=== PATIENT | female | born 1995 | race Hispanic/Latino ===

== ENCOUNTER 2019-01-11 20:50 | Inpatient (IN) | payer OTHER, SELFPAY ==
[2019-01-12] MEDS ORDERED: MEPERIDINE HCL 25 MG/0.5 ML IV PRN (04:16)
[2019-01-12] MEDS ORDERED: PROMETHAZINE 25 MG/ML VIAL IM PRN (04:16)
[2019-01-12] MEDS ORDERED: CARBOPROST TROME 250 MCG/ML IM PRN (04:16)
[2019-01-12] MEDS ORDERED: Ringers Lactate 1,000 ML IV PRN (04:16)
[2019-01-12] MEDS ORDERED: MIDAZOLAM HCL 2 MG/2 ML INJ IV PRN (04:16)
[2019-01-12] MEDS ORDERED: BUTORPHANOL 1 MG/ML INJ IV PRN (04:16)
[2019-01-12] MEDS ORDERED: METHYLERGONOVINE 0.2MG/ML AMP IM PRN (04:16)
[2019-01-12] MEDS ORDERED: OXYTOCIN/LR 20 UNIT/1,000 ML BAG IV SCH ×2 (05:00→19:00)
[2019-01-12] MEDS ORDERED: Ringers Lactate 1,000 ML IV SCH (05:00)
[2019-01-12 05:14] VITALS: BMI 29.3
[2019-01-12 05:25] LABS: Urine Appearance TURBID; Urine Bilirubin NEGATIVE (NEG); Urine Blood NEGATIVE (NEG); Urine Color YELLOW; Urine Glucose NEGATIVE (NEG); Urine Protein NEGATIVE (NEG); Urine Urobilinogen 0.2 mg/dL (0.2-1.0); Urine pH 5.5 (5.0-7.0)
[2019-01-12 05:26] LABS: Urine Microscopic Reflex ORDER UMIC
[2019-01-12 05:52] LABS: Urine Bacteria 20-50 /HPF (<20); Urine RBC <5 /HPF (NONE SEEN)
[2019-01-12 05:53] LABS: Absolute Lymphocytes (CBC) 1.8 K/uL (0.7-4.9); Basophils % 0.3 % (0-1.3); Hematocrit 38.5 % (36.0-45.0); Lymphocytes % 24.6 % (15.3-44.8); MPV 8.8 fL (7.6-11.3); RBC Red Blood Cell Count 4.18 M/uL (3.86-4.86); Urine Culture Reflex Order REFLEXED
[2019-01-12] MEDS ORDERED: ROPIVACAINE HCL 100 ML IV PRN (11:51)
[2019-01-12] MEDS ORDERED: FENTANYL CITR 100 MCG/2 ML IV ONE (11:51)
[2019-01-12] MEDS ORDERED: ROPIVACAINE HCL 0.2% 20ML AMP IV ONE (11:52)
--- NOTE | 2019-01-12 14:24 | PREOPHP ---
Date of Admission: 01/12/2019 This 23-year-old primigravida, 39 weeks 4 days 2.5 cm vertex, -1 station, well applied. Rupture of m embranes, clear fluid. FHTs normal reacting, bart regularly. Beta strep negative. Labor daron k given. Anticipate delivery sometime later today. Patient and I and family have discussed, baby I think probably is 8 pounds or greater but they wish to attempt vaginal delivery. This has been triny sandoval discussed. LYNN/RAY Voice ID: [id number]
[2019-01-12] MEDS ORDERED: CARBOPROST TROME 250 MCG/ML IM ONE (16:09)
[2019-01-12] MEDS ORDERED: METHYLERGONOVINE 0.2MG/ML AMP IM ONE (16:09)
--- NOTE | 2019-01-12 17:27 | PN ---
The patient is bart regularly. She is now 4 cm, 70% to 80% effaced, vertex, still -1 station. FHTs normal, reactive. The patient is requesting epidural. She is being hydrated. Anesthesia waqas jacobson called, hopefully this will not slow her down too much. Full discussion. LYNN/RAY Voice ID: [id number] Report ID: [id number]
--- NOTE | 2019-01-12 17:52 | PN ---
Subjective: Epidural has been placed and patient is so numb she cannot move her legs. She is on 12, which I think is too much for her height, we will move it to 10. She is bart regularly, but exam of the cervix shows there has been no change in over an hour. Baby is occiput posterior. Hopef ully, this will not slow things down, but family advised that the epidural could slow things down by keeping the baby in an occiput posterior position. We will see in the next 2-3 hours. LYNN/RAY Voice ID: [id number] Report ID: [id number]
[2019-01-12] MEDS ORDERED: LIDOCAINE 1% MPF 30 ML VIAL ONE (18:36)
[2019-01-12] MEDS ORDERED: DIPHENHYDRAMINE 25 MG TAB/CAP PO PRN (18:58)
[2019-01-12] MEDS ORDERED: BISACODYL 10 MG RECTAL SUPP RECT PRN (18:58)
[2019-01-12] MEDS ORDERED: DOCUSATE NA/SENNA CONC 1 TAB PO PRN (18:58)
[2019-01-12] MEDS ORDERED: ACETAMINOPHEN 500 MG TAB PO PRN (18:58)
[2019-01-12] MEDS ORDERED: Oxycodone HCl/Acetaminophen 1 TAB TAB PO PRN ×2 (18:58)
[2019-01-13] MEDS: IBUPROFEN 200 MG TAB PO PRN ×2 (00:58→19:19)
[2019-01-13 01:50] LABS: RPR (Rapid Plasma Reagin) NON-REACT (NON-REACT)
--- NOTE | 2019-01-13 05:14 | OP ---
Surgeon: Jens Key MD A 23-year-old primigravida, at 39 weeks 4 days, Rh positive, immune to Rubella. Negative beta strep screen. Approximately 2.5 cm on admission. Rupture of membranes, clear fluid. Patient requested an d received epidural at approximately 4-5 cm. This made her extremely numb. She could not feel or ev en move her legs very well. As the day progressed, we decreased the maintenance epidural from 12-10 to 8-6, and finally at her request, we turned it off. When it came time to pushing, she could not pu sh very effectively. After about 30 minutes of effective pushing, total pushing about an hour to an hour and a half, spontaneous vaginal delivery of an estimated 7.5 to 8-pound male infant. Nuchal cor d x2. Apgars 9 and 9. Spontaneous midline second-degree laceration simulating episiotomy, repaired with 2-0 chromic under local infiltration. Schultze delivery of the placenta, which was inspected an d noted to be intact and normal. Less than 300 mL blood loss. The patient tolerated all procedures well. Final Diagnoses: Intrauterine gestation, 39 weeks 4 days, labor induction, vaginal delivery, epidura l anesthesia, nuchal cord x2. ZACHERYC/MODL Voice ID: [id number] Report ID: [id number]
--- NOTE | 2019-01-13 08:50 | PREOPHP ---
Date of Admission: 01/12/2019 This 23-year-old primigravida, 39 weeks 4 days, 2.5 cm vertex, -1 station, well applied. Rupture of membranes, clear fluid. FHTs normal reacting, bart regularly. Beta strep negative. Labor ta lk given. Anticipate delivery sometime later today. Patient and I and family have discussed, baby I think probably is 8 pounds or greater but they wish to attempt vaginal delivery. This has been thor oughly discussed. LYNN/RAY Voice ID: [id number]
[2019-01-13 22:31] VITALS: BP 116/60; TEMP 97.4
--- NOTE | 2019-01-14 06:06 | DS ---
Date of Discharge: 01/13/2019 Hospital Course: 23-year-old, primigravida, 39 weeks and 4 days, came in for induction. Rupture of membranes, clear fluid. Patient requested and received epidural anesthesia at approximately 5 cm. T his was allowed to go gradually wear off towards the end of the labor as she was not able to push eff ectively and she herself requested epidural be turned off. After about 30 minutes of effective pushi ng, she delivered 7-pound 12-ounce male infant, Apgars 9 and 9 according to my estimates, 8 and 9 acc ording to the nurse. In any event, the viable healthy. Baby nuchal cord x2. Second-degree midline laceration repaired with 2-0 chromic under local infiltration. Schultze delivery of the placenta, wh ich was inspected and noted to be intact and normal, 300 cc or less blood loss. Rh positive, immune to Rubella, and negative beta strep screen. , afebrile, ambulating and voiding, is not benjamin lly ambulating well, needs to get out in the [place] and ambulate. Full discussion given. S he is to report any temperature elevation of 100 degrees or greater, severe pain, heavy bleeding, or any other type of abnormalities. Tdap has been offered during her and flu shot is not avai lable now, but she can come to my office she knows for flu shot. No post-epidural problems reported. Final Diagnoses: Term intrauterine at 39 weeks and 4 days, vaginal delivery, epidural anes thesia, nuchal cord x2. LYNN/RAY Voice ID: [id number] Report ID: [id number]
[2019-01-15 20:02] LABS: HBsAG Nonreactive (Nonreactive)
== END 2019-01-13 23:52 | disposition home or self-care (01) | DRG 807 ==
LOC: 2ND-WC 01-12 04:22
PROVIDERS: ADMIT Specialist; ATTEND Specialist
PROC: 10907ZC Drainage of Amniotic Fluid, Therapeutic from Products of Conception, Via Natural or Artificial Opening (ICD-10-PCS; principal; 2019-01-12)
PROC: 10E0XZZ Delivery of Products of Conception, External Approach (ICD-10-PCS; 2019-01-12)
PROC: 0KQM0ZZ Repair Perineum Muscle, Open Approach (ICD-10-PCS; 2019-01-12)
PROC: 3E033VJ Introduction of Other Hormone into Peripheral Vein, Percutaneous Approach (ICD-10-PCS; 2019-01-12)
DX: O70.1 Second degree perineal laceration during delivery (principal); Z37.0 Single live birth; O69.81X0 Labor and delivery complicated by cord around neck, without compression, not applicable or unspecified; Z3A.39 39 weeks gestation of pregnancy
CPT/HCPCS: 36415; 81003; 81015; 85025; 86592; 86850; 86900; 86901; 87086; 87088; 87340; J0595; J2210; J2550; J2590; J2795; J3010